=== PATIENT | male | born 1970 | race Caucasian/White ===

== ENCOUNTER 2020-04-16 15:48 | Outpatient (CLI) | payer OTHER ==
[~2020-04-16 15:48] MED LIST: ESZO1TAB8 PO; IBUP-1221 PO; OMEP-110 PO
[2020-04-16] MEDS ORDERED: LORA10CA PO (16:10)
[2020-04-16] MEDS ORDERED: FEXO1TAB29 PO (16:25)
[2020-04-16] MEDS ORDERED: CHERRY EXTRACT PO (16:25)
[2020-04-16] MEDS ORDERED: ASCO500T8 PO (16:25)
[2020-04-16] MEDS ORDERED: IBUP200C8 PO (16:25)
[2020-04-16] MEDS ORDERED: OMEG1CAP34 PO (16:25)
[2020-04-16] MEDS ORDERED: PSYLLIUM HUSK PO (16:25)
[2020-04-16] MEDS ORDERED: HEPARIN 5,000 UNITS/ML, 1ML ONE (19:04)
== END 2020-04-16 23:59 | disposition home or self-care (01) ==
LOC: STAR 15:48
PROVIDERS: ATTEND Orthopaedic Surgery
DX: Z20.828 Contact with and (suspected) exposure to other viral communicable diseases (principal); M25.562 Pain in left knee; M23.42 Loose body in knee, left knee; M94.262 Chondromalacia, left knee
CPT/HCPCS: 87635

== ENCOUNTER 2020-04-23 06:13 | Day surgery (SDC) | payer OTHER ==
[~2020-04-23] VITALS: Ht 185.4 cm; Wt 121.3 kg
[~2020-04-23 06:13] MED LIST changes: +ASCO500T8 PO; +CHERRY EXTRACT PO; +FEXO1TAB29 PO; +IBUP200C8 PO; +LORA10CA PO; +OMEG1CAP34 PO; +PSYLLIUM HUSK PO
[2020-04-23] MEDS ORDERED: LIDOCAINE/PF 1%, 30ML ONE (06:16)
[2020-04-23] MEDS ORDERED: EPINEPHRINE 1 MG/ML, 1ML ONE (06:16)
[2020-04-23] MEDS ORDERED: ROPIvacaine/PF 0.5%, 30 ML ONE (06:16)
[2020-04-23 06:36] VITALS: BP 134/91
[2020-04-23] MEDS ORDERED: LACTATED RINGERS 1,000 ML IV SCH (07:00)
[2020-04-23] MEDS ORDERED: CHLORHEXIDINE 15 ML UDC MM ONE (07:00)
[2020-04-23] MEDS ORDERED: FENTANYL PF 100 MCG/2ML ONE ×2 (07:17→08:56)
[2020-04-23] MEDS ORDERED: MIDAZOLAM 1 MG/ML, 2ML ONE (07:17)
[2020-04-23] MEDS ORDERED: CEFAZOLIN 1,000 MG ONE ×3 (07:18→07:43)
[2020-04-23] MEDS ORDERED: PROPOFOL 10 MG/ML, 20ML ONE ×2 (07:20)
[2020-04-23] MEDS ORDERED: FENTANYL PF 100 MCG/2ML IV PRN (07:30)
[2020-04-23] MEDS ORDERED: OXYcodone 5 MG/5 ML ORAL.SOL UDC PO PRN (07:30)
[2020-04-23] MEDS ORDERED: ACETAMINOPHEN 325 MG TABLET PO PRN (07:30)
[2020-04-23] MEDS ORDERED: PROMETHAZINE 25 MG/ML, 1ML IVPush PRN (07:30)
[2020-04-23] MEDS ORDERED: DEXAMETHASONE 4 MG/ML, 1ML ONE ×2 (07:44)
[2020-04-23] MEDS ORDERED: ONDANSETRON 2MG/ML, 2ML ONE (07:46)
[2020-04-23] MEDS ORDERED: KETOROLAC 30 MG/1 ML ONE (07:46)
[2020-04-23] MEDS ORDERED: ACETAMINOPHEN 650 MG/20.3 ML UDC ONE (08:50)
[2020-04-23] MEDS ORDERED: OXYcodone 5 MG/5 ML ORAL.SOL UDC ONE (08:56)
== END 2020-04-23 10:05 | disposition home or self-care (01) ==
LOC: OUT 06:13
PROVIDERS: ATTEND Orthopaedic Surgery
DX: M23.262 Derangement of other lateral meniscus due to old tear or injury, left knee (principal); M23.42 Loose body in knee, left knee; M94.262 Chondromalacia, left knee; M65.862 Other synovitis and tenosynovitis, left lower leg; K21.9 Gastro-esophageal reflux disease without esophagitis; G47.30 Sleep apnea, unspecified; Z79.899 Other long term (current) drug therapy; Z88.8 Allergy status to other drugs, medicaments and biological substances; Z72.89 Other problems related to lifestyle; Z98.890 Other specified postprocedural states
CPT/HCPCS: 29881; J0171; J0690; J1100; J1885; J2250; J2405; J2704; J2795; J3010; J7120; 87635